=== PATIENT | female | born 1955 | race Asian ===

== ENCOUNTER 2018-08-27 01:46 | Emergency (ER) | payer OTHER ==
[2018-08-27 02:29] VITALS: BMI 18.8
[2018-08-27] MEDS ORDERED: FAMOTIDINE 20 MG/50 ML IVPB 20 MG/50 ML MG IVPB ONE (03:01)
[2018-08-27] MEDS ORDERED: SODIUM CHLORIDE 0.9% 1000 ML INFUS.BAG IV ONE ×2 (03:01→05:58)
[2018-08-27] MEDS ORDERED: ONDANSETRON 4 MG/2 ML VIAL IVPUSH ONE (03:01)
--- NOTE | 2018-08-27 03:05 | PDOC ---
Attending Attestation - Resident Resident Name: Kushal Mix - ED Attending Attestation I have performed the following: I have examined & evaluated the patient, The case was reviewed & discussed with the resident, I agree w/resident's findings & plan - HPI HPI: 08/27/18 06:46 62-year-old female with vomiting and weakness while prepping for colonoscopy today. - Physicial Exam PE: 08/27/18 06:46 agree with resident exam - Medical Decision Making 08/27/18 06:46 62-year-old female with vomiting while prepping for colonoscopy Labs revealed a sodium of 126 Patient receiving 2 L of IV fluid normal saline, plan for repeat sodium after second liter, case signed out to day shift
[2018-08-27 04:10] LABS: BASO % 0.4 % (0-2.0); EOS % 3.7 % (0-4.5); HEMATOCRIT 32.9 % (32.4-45.2); HEMOGLOBIN 11.3 GM/dL (10.7-15.3); MCH 29.3 pg (25.7-33.7); MCHC 34.4 g/dl (32.0-36.0); MEAN CELL VOLUME 85.2 fl (80-96); MEAN PLT VOLUME 9.3 fl (7.5-11.1); MONO % 5.7 % (3.8-10.2); NEUT % 71.2 % (42.8-82.8); PLATELET COUNT 244 K/MM3 (134-434); RBC 3.86 M/mm3 (3.60-5.2); RDW 12.6 % (11.6-15.6); WHITE BLOOD COUNT 8.1 K/mm3 (4.0-10.0)
[2018-08-27 04:27] LABS: INR 1.37 (0.83-1.09); PROTHROMBIN TIME (PATIENT) 16.2 SEC (9.7-13.0)
[2018-08-27 04:35] LABS: ALBUMIN 3.4 g/dl (3.4-5.0); ALK PHOS 79 U/L (45-117); ANION GAP 9 MMOL/L (8-16); BILIRUBIN,TOTAL 0.5 mg/dL (0.2-1); BLOOD UREA NITROGEN 6.9 mg/dL (7-18); CALCIUM 8.4 mg/dL (8.5-10.1); CHLORIDE 93 mmol/L (98-107); CO2 24 mmol/L (21-32); CREATININE 0.5 mg/dL (0.55-1.3); GLUCOSE,RANDOM 112 mg/dL (74-106); POTASSIUM 3.9 mmol/L (3.5-5.1); SGOT/AST 15 U/L (15-37); SGPT/ALT 11 U/L (13-61); SODIUM 126 mmol/L (136-145); TOT PROT 6.7 g/dl (6.4-8.2)
--- NOTE | 2018-08-27 05:17 | PDOC ---
History of Present Illness - General Chief Complaint: Nausea/Vomiting Stated Complaint: NAUSEA/VOMITING Time Seen by Provider: 08/27/18 03:00 History Source: Patient Exam Limitations: No Limitations - History of Present Illness Initial Comments: 08/27/18 05:07 62F with a PMH of severe RA and asthma who presents to the ER with acute onset nausea and vomiting after starting her bowel prep. The patient states that it started after trying her bowel prep. She describes severe nausea and lightheadedness without abdominal pain, CP, SOB, fever, chills. She also describes NBNB vomitus of which she does not know how many times she has vomited. She denies any other symptoms. Past History - Past Medical History Allergies/Adverse Reactions: Allergies Allergy/AdvReac Type Severity Reaction Status Date / Time No Known Allergies Allergy Verified 08/27/18 03:42 - Suicide/Smoking/Psychosocial Hx Smoking History: Never smoked Review of Systems - Review of Systems Able to Perform ROS?: Yes Comments:: 08/27/18 05:17 GENERAL/CONSTITUTIONAL: No fever or chills. No weakness. HEAD, EYES, EARS, NOSE AND THROAT: No change in vision. No ear pain or discharge. No sore throat. CARDIOVASCULAR: + for lightheadedness. No chest pain or palpitations. RESPIRATORY: No cough, wheezing, shortness of breath, or hemoptysis. GASTROINTESTINAL: + for nausea and vomiting. No abdominal pain, diarrhea, or constipation. GENITOURINARY: No dysuria, frequency, hematuria, or change in urination. MUSCULOSKELETAL: No joint or muscle swelling or pain. No neck or back pain. SKIN: No rash or lesions. NEUROLOGIC: No headache, numbness, tingling, focal weakness, loss of consciousness, or change in strength/sensation. Is the patient limited [place] proficient: No *Physical Exam - Vital Signs Last Vital Signs Temp Pulse Resp BP Pulse Ox 97.8 F 76 19 152/90 98 08/27/18 01:47 08/27/18 01:47 08/27/18 01:47 08/27/18 01:47 08/27/18 01:47 - Physical Exam Comments: 08/27/18 05:18 GENERAL: Well developed, well nourished. Awake and alert. Uncomfortable appearing. HEENT: Normocephalic, atraumatic. Hearing grossly normal. Moist mucous membranes. PERRLA, EOMI. No conjunctival pallor. Sclera are non-icteric. NECK: Supple. Full ROM. No JVD. CARDIOVASCULAR: Regular rate and rhythm. No murmurs, rubs, or gallops. PULMONARY: No evidence of respiratory distress. Lungs clear to auscultation bilaterally. No wheezing, rales or rhonchi. ABDOMINAL: Soft. Non-tender. Non-distended. No rebound or guarding. GENITOURINARY: No CVA tenderness bilaterally. MUSCULOSKELETAL: Normal range of motion at all joints. No bony deformities or tenderness. EXTREMITIES: No cyanosis. No clubbing. No edema. No calf tenderness or swelling. SKIN: Warm and dry. Normal capillary refill. No rashes. No jaundice. NEUROLOGICAL: Alert, awake, appropriate. Cranial nerves 2-12 grossly intact. Normal speech. Gait is normal without ataxia. PSYCHIATRIC: Cooperative. Good eye contact. Appropriate mood and affect. ED Treatment Course - LABORATORY CBC & Chemistry Diagram: 08/27/18 03:59 08/27/18 03:59 - ADDITIONAL ORDERS Additional order review: Laboratory Results 08/27/18 08/27/18 03:59 03:59 PT with INR 16.20 H INR 1.37 H Sodium 126 L Potassium 3.9 Chloride 93 L Carbon Dioxide 24 Anion Gap 9 BUN 6.9 L Creatinine 0.5 L Est GFR (CKD-EPI)AfAm 121.92 Est GFR (CKD-EPI)NonAf 105.20 Random Glucose 112 H Calcium 8.4 L Total Bilirubin 0.5 AST 15 ALT 11 L Alkaline Phosphatase 79 Creatine Kinase 85 Troponin I < 0.02 Total Protein 6.7 Albumin 3.4 08/27/18 03:59 RBC 3.86 MCV 85.2 MCHC 34.4 RDW 12.6 MPV 9.3 Neutrophils % 71.2 Lymphocytes % 19.0 Monocytes % 5.7 Eosinophils % 3.7 Basophils % 0.4 - Medications Given in the ED: ED Medications Discontinued Medications Generic Name Dose Route Start Last Admin Trade Name Freq PRN Reason Stop Dose Admin Famotidine/Sodium Chloride 20 mg in 50 mls @ 100 mls/hr 08/27/18 03:01 04:05 Pepcid 20 Mg Premixed Ivpb - IVPB 08/27/18 03:30 100 mls/hr ONCE ONE Administration Ondansetron HCl 4 mg 08/27/18 03:01 08/27/18 04:05 Zofran Injection IVPUSH 08/27/18 03:02 4 mg ONCE ONE Administration Sodium Chloride 1,000 ml 08/27/18 03:01 08/27/18 04:05 Normal Saline - IV 08/27/18 03:02 1,000 ml ONCE ONE Administration Medical Decision Making - Medical Decision Making 08/27/18 05:18 62F with a PMH of RA presents with nausea and vomiting and lightheadedness after starting a bowel prep. Pt has normal PE and vitals. Will treat symptomatically and reassess. 08/27/18 05:59 Na noted at 126. Will give 1 more L NS and repeat BMP. Pt well appearing and states her symptoms are improving.
[2018-08-27 06:22] VITALS: BP 142/67; PULSE 88; TEMP 98.2
--- NOTE | 2018-08-27 08:27 | PDOC ---
*Physical Exam - Vital Signs Last Vital Signs Temp Pulse Resp BP Pulse Ox 98.2 F 88 19 142/67 98 08/27/18 06:21 08/27/18 06:21 08/27/18 06:21 08/27/18 06:21 08/27/18 06:21 - Physical Exam General Appearance: Yes: Nourished, Thin HEENT: positive: Normal ENT Inspection, Normal Voice, Symmetrical, Pharynx Normal. negative: Scleral Icterus (R), Scleral Icterus (L) Neck: positive: Supple. negative: Tender, Lymphadenopathy (R), Lymphadenopathy (L) Respiratory/Chest: positive: Lungs Clear, Normal Breath Sounds. negative: Respiratory Distress Cardiovascular: positive: Regular Rhythm, Regular Rate. negative: Edema Gastrointestinal/Abdominal: positive: Flat, Soft. negative: Tender Musculoskeletal: positive: Normal Inspection Extremity: positive: Normal Capillary Refill, Normal Inspection, Normal Range of Motion, Other (walking to bathroom without assistance or gait issues) Neurologic: positive: Fully Oriented, Alert, Normal Mood/Affect, Normal Response ED Treatment Course - LABORATORY CBC & Chemistry Diagram: 08/27/18 03:59 08/27/18 09:30 - ADDITIONAL ORDERS Additional order review: Laboratory Results 08/27/18 08/27/18 03:59 03:59 PT with INR 16.20 H INR 1.37 H Sodium 126 L Potassium 3.9 Chloride 93 L Carbon Dioxide 24 Anion Gap 9 BUN 6.9 L Creatinine 0.5 L Est GFR (CKD-EPI)AfAm 121.92 Est GFR (CKD-EPI)NonAf 105.20 Random Glucose 112 H Calcium 8.4 L Total Bilirubin 0.5 AST 15 ALT 11 L Alkaline Phosphatase 79 Creatine Kinase 85 Troponin I < 0.02 Total Protein 6.7 Albumin 3.4 08/27/18 03:59 RBC 3.86 MCV 85.2 MCHC 34.4 RDW 12.6 MPV 9.3 Neutrophils % 71.2 Lymphocytes % 19.0 Monocytes % 5.7 Eosinophils % 3.7 Basophils % 0.4 - Medications Given in the ED: ED Medications Discontinued Medications Generic Name Dose Route Start Last Admin Trade Name Freq PRN Reason Stop Dose Admin Famotidine/Sodium Chloride 20 mg in 50 mls @ 100 mls/hr 08/27/18 03:01 04:05 Pepcid 20 Mg Premixed Ivpb - IVPB 08/27/18 03:30 100 mls/hr ONCE ONE Administration Ondansetron HCl 4 mg 08/27/18 03:01 08/27/18 04:05 Zofran Injection IVPUSH 08/27/18 03:02 4 mg ONCE ONE Administration Sodium Chloride 1,000 ml 08/27/18 03:01 08/27/18 04:05 Normal Saline - IV 08/27/18 03:02 1,000 ml ONCE ONE Administration Sodium Chloride 1,000 ml 08/27/18 05:58 08/27/18 06:04 Normal Saline - IV 08/27/18 05:59 1,000 ml ONCE ONE Administration Medical Decision Making - Medical Decision Making 08/27/18 08:25 Signed out to me by Dr. Mix. Scheduled for colo today, was doing prep last night. Large amount of nausea and vomiting during process, with weakness, denies abd pain. Initial Na check 126. S /p 2L NS bolus. Currently feels much improved, called to cancel colo today. Will repeat serum Na to evaluate if Na level improved. Dispo pending repeat Na. 08/27/18 10:53 Repeat Na 139, WNL. Will discharge home with PMD f/u. Discussed alternative or lower dose prep for colonoscopy as well as return precautions. *DC/Admit/Observation/Transfer Diagnosis at time of Disposition: Hyponatremia - Discharge Dispostion Disposition: HOME Condition at time of disposition: Improved Decision to Admit order: No - Referrals - Patient Instructions Printed Discharge Instructions: DI for Nausea -- Adult, DI for Vomiting -- Adult Additional Instructions: Today you were evaluated for nausea and vomiting after you were preparing for a colonoscopy. Your symptoms improved, but your electrolytes were decreased. You were found to have a low sodium level, likely due to the vomiting and diarrhea. We gave you some medications for nausea, and also gave you 2 liters of IV saline to help replenish the fluids you lost and correct your sodium, which is now normal. Please see your primary doctor and GI doctor in the next few days to follow-up. When you speak to your GI doctor, please discuss that you may need a lower dose of the prep before colonoscopies, because you have a bad experience with them and become dehydrated. Today, try and eat a good meal and stay hydrated to prevent any more nausea or vomiting. If you experience further nausea/vomiting, have fever, worsening weakness, or any new or concerning symptoms, please return to an emergency room. - Post Discharge Activity
[2018-08-27 10:23] LABS: BILIRUBIN,TOTAL 0.4 mg/dL (0.2-1); BLOOD UREA NITROGEN 5.2 mg/dL (7-18); CREATININE 0.5 mg/dL (0.55-1.3); TOT PROT 5.9 g/dl (6.4-8.2)
--- NOTE | 2018-08-27 14:41 | EKG ---
Test Reason : Blood Pressure : / mmHG Vent. Rate : 065 BPM Atrial Rate : 065 BPM P-R Int : 144 ms QRS Dur : 078 ms QT Int : 452 ms P-R-T Axes : 075 049 043 degrees QTc Int : 470 ms NORMAL SINUS RHYTHM NORMAL ECG NO PREVIOUS ECGS AVAILABLE Confirmed by Donald Rachel MD ([id number]) on 08/27/2018 2:41:26 PM Referred By: Confirmed By:Donald Rachel MD
== END 2018-08-27 11:00 | disposition home or self-care (01) ==
LOC: JER 01:46
PROC: 3E033GC Introduction of Other Therapeutic Substance into Peripheral Vein, Percutaneous Approach (ICD-10-PCS; principal; 2018-08-27)
PROC: 3E033GC Introduction of Other Therapeutic Substance into Peripheral Vein, Percutaneous Approach (ICD-10-PCS; 2018-08-27)
PROC: 3E0337Z Introduction of Electrolytic and Water Balance Substance into Peripheral Vein, Percutaneous Approach (ICD-10-PCS; 2018-08-27)
DX: E87.1 Hypo-osmolality and hyponatremia (principal)
CPT/HCPCS: 36415; 80053; 82550; 84484; 85025; 85610; 93005; 93010; 99283-25; J7030